=== PATIENT | female | born 1980 ===

== ENCOUNTER → 2023-07-18 10:55 | Outpatient (CLI) | payer OTHER, SELFPAY ==
--- NOTE | ~2023-07-18 | MR_ITS ---
MRI of the left thumb CLINICAL HISTORY: Sprain or interphalangeal joint of thumb TECHNIQUE: Axial T1-weighted and T2 fat-sat images, coronal T1-weighted and proton-density fat-sat im ages, and sagittal T1-weighted and T2 fat-sat images were performed. FINDINGS: There is no fracture or dislocation the thumb. Bone marrow signals are unremarkable. Joint spaces are preserved. No joint effusion seen. There is thickening and mild increased signal of the ulnar collateral ligament at the first metacarpo phalangeal joint, without definite tear. Radial collateral ligament is intact. Collateral ligaments a nd interphalangeal joint are intact, with possible minimal thickening of the ulnar-sided ligament. Vi sualized musculature is intact. No soft tissue mass or fluid collection seen. IMPRESSION: Findings compatible with sprain of the ulnar collateral ligament of the first metacarpophalangeal red nt. No definite ligament tear seen. Reviewed, dictated and finalized at [facility]. R COATING HAND IMPRESSION: Findings compatible with sprain of the ulnar collateral ligament of the first m etacarpophalangeal joint. No definite ligament tear seen.
== END ==
DX: S63.622 Sprain of interphalangeal joint of left thumb (principal); X58.XXXD Exposure to other specified factors, subsequent encounter
CPT/HCPCS: 73218